=== PATIENT | female | born 1935 | race Caucasian/White ===

== ENCOUNTER → 2016-05-18 | Outpatient (CLI) | payer MEDICARE, OTHER ==
--- NOTE | 2016-05-18 14:26 | RAD ---
EXAM DESCRIPTION: XR PELVIS 1-2 VIEWS CLINICAL HISTORY: PAIN IN LEFT HIP COMPARISON: July 22, 2015 IMPRESSION: Single AP supine view of the pelvis shows no evidence of acute fracture, focal bone destruction, or joint dislocation. 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 Mild sclerotic changes at the pubic symphyseal region are noted. Electronically signed by: Ramone Nieves MD 05/18/2016 14:25
--- NOTE | 2016-05-19 08:01 | RAD ---
EXAM DESCRIPTION: XR KNEE 4 OR MORE VIEWS CLINICAL HISTORY: 81 y/o ,F, PAIN IN RIGHT KNEE COMPARISON: None. IMPRESSION: Degenerative change noted within the medial compartment of the right knee with joint space loss and osteophyte formation. The lateral compartment and patellofemoral joint appear preserved. Moderate-sized joint effusion. No evidence of fracture or osseous lesion of right knee. Electronically signed by: Chris Olmos MD 05/19/2016 07:59
--- NOTE | 2016-05-19 08:01 | RAD ---
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 This can be seen in setting of joint loosening. This is seen only on the lateral radiograph. Tibial prosthesis appears unremarkable. Moderate joint effusion. No evidence of fracture. Electronically signed by: Chris Olmos MD 05/19/2016 07:58
== END ==
LOC: RAD 08:45
PROVIDERS: ATTEND Orthopaedic Surgery
DX: M25.562 Pain in left knee (principal); M25.561 Pain in right knee; M25.462 Effusion, left knee; M25.461 Effusion, right knee; M12.862 Other specific arthropathies, not elsewhere classified, left knee; M12.861 Other specific arthropathies, not elsewhere classified, right knee; M16.0 Bilateral primary osteoarthritis of hip; Z96.652 Presence of left artificial knee joint

== ENCOUNTER → 2016-08-30 | Outpatient (CLI) | payer MEDICARE ==
--- NOTE | 2016-08-30 16:21 | MAM ---
History: Well woman exam. Date of exam: 08/30/2016 Services provided: Bilateral full field digital screening mammography. CAD, the images were reviewed with R2 computer aided detection. FINDINGS: Glandular tissue is scattered glandular contour with increased mammographic density. Comparison with 2013 study. Stable distribution. No dominant mass, architectural distortion or clustered calcifications. IMPRESSION: Benign exam. Recommendation: Routine annual exam. BIRAD CATEGORY: 2 BENIGN Electronically signed by: Venita Boyd MD 08/30/2016 4:15 PM CDT
== END | disposition home or self-care (01) ==
LOC: MAMMO 09:00
PROVIDERS: ATTEND Family Medicine
DX: Z12.31 Encounter for screening mammogram for malignant neoplasm of breast (principal)

== ENCOUNTER → 2016-10-03 | Outpatient (CLI) | payer MEDICARE, OTHER | END | disposition home or self-care (01) | LOC: GMAB 14:36 | PROVIDERS: ATTEND Family Medicine | DX: E03.9 Hypothyroidism, unspecified (principal) ==

== ENCOUNTER → 2016-10-05 | Outpatient (CLI) | payer MEDICARE, OTHER ==
--- NOTE | 2016-10-06 15:50 | CT ---
EXAM DESCRIPTION: CT ABDOMEN AND PELVIS WITHOUT AND WITH CONTRAST CLINICAL HISTORY: RUQ PAIN R10.11 COMPARISON: None Available. TECHNIQUE: CT of the abdomen and pelvis are performed prior to and during IV bolus administration of nonionic contrast. Oral contrast was not utilized. This exam was performed according to our departmental dose-optimization program, which includes automated exposure control, adjustment of the mA and/or kV according to patient size and/or use of iterative reconstruction technique. FINDINGS: The lung bases are essentially clear. Noncontrast imaging of the abdomen demonstrates no evidence of gallstones or renal calculi. Surgical suture row involving the right colon is noted in the right midabdomen. A modest sliding-type hiatal hernia is evident. Mild scoliosis of the lumbar spine with degenerative disc changes most prominently at L3-4 is evident. A small low-density lesion within the lateral aspect right lobe of the liver is present. Venous imaging demonstrates a fatty replaced liver with a small 1 cm bilobed cyst in the lateral aspect right lobe of the liver with normal-appearing gallbladder and ductal system. A small normal spleen is present. The pancreas is slightly undulating in its course but no cystic or solid mass or pancreatic duct obstruction is seen. The adrenal glands are normal in cortical enhancement of the kidneys is noted without solid or cystic renal mass. The retroperitoneum is unremarkable with normal caliber aorta and vena cava. No renal hydronephrosis is noted in the bladder is unremarkable. Prior midline abdominal surgery is noted without evidence of ventral hernia or inguinal hernia. Left colonic diverticulosis is present. Small normal to upper normal lymph nodes in the mesentery suggest mesenteric multiple mesenteric inflammation but a distinct mass or pathologic adenopathy is not apparent. The uterus is surgically absent without adnexal masses and no abdominal or pelvic free fluid is noted. IMPRESSION: 1. Fatty replaced liver with small benign bilobed 1 cm cyst lateral aspect of the right lobe of the liver. 2. Small sliding-type hiatal hernia. 3. Scattered small normal in upper normal mesenteric lymph nodes suggesting mild mesenteric inflammation but without conglomerate or enlarged lymphadenopathy 4. Left colonic diverticulosis. 5. A specific etiology for the patient's right upper quadrant pain is not apparent. Right colonic surgical anastomosis appears normal. Electronically signed by: Cb Houston MD 10/06/2016 3:51 PM CDT
== END | disposition home or self-care (01) ==
LOC: CT 08:49
PROVIDERS: ATTEND Family Medicine
DX: R10.11 Right upper quadrant pain (principal)

== ENCOUNTER → 2016-11-03 | Outpatient (CLI) | payer MEDICARE, OTHER | LOC: GMAB 17:48 | PROVIDERS: ATTEND Family Medicine | DX: E53.8 Deficiency of other specified B group vitamins (principal); D50.9 Iron deficiency anemia, unspecified ==

== ENCOUNTER → 2017-02-02 | Outpatient (CLI) | payer OTHER ==
--- NOTE | 2017-02-03 16:05 | US ---
EXAM DESCRIPTION: Abdomen,Complete CLINICAL HISTORY: RIGHT UPPER QUADRANT PAIN COMPARISON: CT abdomen and pelvis 10/05/2016. TECHNIQUE: Transabdominal scannin-dimensional and Doppler modes. FINDINGS: The gallbladder is normal in size, shape, and echogenicity, with no intraluminal stones or sludge. No fluid around the gallbladder. Wall thickness upper normal. 2.9 mm. Common bile duct caliber 4.6 mm which is within normal limits. No stones in the visualized portion of the duct. Not tender with transducer pressure. The liver demonstrates increased echogenicity; contour of the liver capsule is smooth where seen. Heterogeneous echoes. No fluid around the liver. Intrahepatic biliary ducts are non-dilated. Craniocaudal dimension in the mid-clavicular axis is 14.2 cm. Pancreas head, body, and tail normal in size and increased in echogenicity. Pancreatic duct is not dilated. Normal Doppler vascularity in the ozzie hepatis. Abdominal aorta diameter proximal 1.8 cm. Mid 1.7 cm. Distal 1.7 cm. IVC visualized; normal caliber. Spleen heterogeneous echogenicity; long axis measurement is 7.2 cm. No fluid in the spleno-renal fossa. Right kidney measures 11.4 x 4.8 x 4.2 cm , midrenal cortical thickness 9.6 mm. Heterogeneous Echogenicity with no hydronephrosis, no large calcifications, and no perinephric fluid. Contour smooth. Vascularity normal. Ureter not visualized. Left kidney measures 10.8 x 5.7 x 5.3 cm normal mid renal cortical thickness. Heterogeneous Echogenicity with no hydronephrosis, no large calcifications, and no perinephric fluid. Contour smooth. Vascularity normal. Ureter not visualized. IMPRESSION: 1. Normal size of the liver with echogenicity probably related to aging. Normal intrahepatic and extrahepatic ducts. Normal ultrasound of the gallbladder. No ascites. Normal vascularity. Normal ultrasound of the pancreas. 2. Echogenicity of the spleen probably related to aging. Normal size. No ascites. Normal caliber of the abdominal aorta. 3. Age-related changes in the bilateral kidneys with cortical thinning on the right. No hydronephrosis. Electronically signed by: Joshua Penn MD 02/03/2017 4:04 PM CDT
== END | disposition home or self-care (01) ==
LOC: US 12:15
PROVIDERS: ATTEND Family Medicine
DX: R10.11 Right upper quadrant pain (principal)

== ENCOUNTER → 2017-09-07 | Outpatient (CLI) | payer OTHER ==
--- NOTE | 2017-09-08 16:28 | MAM ---
EXAM DESCRIPTION: 3D Screening BILATERAL : Digital Mammography. CLINICAL HISTORY: 82 years Female SCREENING . No complaints. Prior bilateral biopsies and cyst aspiration of the right breast. No family history of breast cancer. Hysterectomy. Taking HRT 5 or more years ago. COMPARISON: 2-D digital screening bilateral study 09/07/2016. Report from prior examination also reviewed. TECHNIQUE: Bilateral CC and MLO projection full-field images, 3-D tomosynthesis digital mammographic technique. Also bilateral synthesized CC/ MLO full-field images. CAD not utilized. FINDINGS: The breast parenchymal density pattern is: Scattered areas of fibroglandular density. No skin thickening or nipple retraction VAD injection port partially superimposed over the pectoral muscle in the upper outer quadrant left breast on the MLO image. Bilateral vascular calcifications. Bilateral solitary microcalcifications. Multiple skin moles on the right breast. No focal, stellate mass or density, focal asymmetry , and no suspicious microcalcifications bilaterally. Stable mammograms compared to prior study, taking into account differences in mammographic technique IMPRESSION: BI-RADS CATEGORY: 2 - BENIGN FINDINGS. FOLLOW UP: Routine digital bilateral screening, one year interval from August 2017. Written communication explaining the IMPRESSION and follow-up, will be mailed to the patient and referring health care provider. According to the [employer], yearly mammograms are recommended starting at age 40 and continuing as long as a woman is in good health. Any breast change noted on a breast self-exam should be reported promptly to the patient's healthcare provider. Breast MRI is recommended for women with an approximately 20-25% or greater lifetime risk of breast cancer, including women with a strong family history of breast or ovarian cancer and women who have been treated for Hodgkin's disease. A negative mammographic report should not delay tissue diagnosis in patients with significant clinical history or physical findings. Extremely dense breast tissue limits the sensitivity of digital mammography. Electronically signed by: Joshua Penn MD 09/08/2017 4:26 PM CDT
== END ==
LOC: MAMMO 09:30
PROVIDERS: ATTEND Family Medicine
DX: Z12.31 Encounter for screening mammogram for malignant neoplasm of breast (principal)

== ENCOUNTER → 2017-10-10 | Outpatient (CLI) | payer MEDICARE | LOC: GMAB 10:58 | PROVIDERS: ATTEND Family Medicine | DX: E03.9 Hypothyroidism, unspecified (principal) ==

== ENCOUNTER → 2017-10-20 | Outpatient (CLI) | payer MEDICARE ==
--- NOTE | 2017-10-20 16:43 | CT ---
EXAM DESCRIPTION: Chest w/Contrast : Computed Tomography. CLINICAL HISTORY: MALIGNANT NEOPLASM OF LOWER LOBE COMPARISON: CT scan chest with IV contrast 11/03/2015. TECHNIQUE: Spiral-axial scans at 5.0 mm intervals through the lungs and thorax with IV contrast. 2.5 mm lung algorithm axial reconstructions. Coronal and sagittal 2.0 Mm reconstructions. No adverse reactions. Total Exam DLP: 407.2 mGy-cm. This exam was performed according to our departmental dose-optimization program which includes automated exposure control, adjustment of the mA and/or kV according to patient size and/or use of iterative reconstruction technique; to reduce radiation dose to as low as reasonably achievable (ALARA). FINDINGS: Bilateral intermittent focal pleural thickening. No pleural effusion or pneumothorax. Thickening of the major fissures. No abnormal pulmonary nodules masses or infiltrates. Inhomogeneous enhancement of the thyroid gland. No abnormal size lymph nodes mediastinum hilum or chest wall. No soft tissue masses. Atherosclerotic calcifications with coronary artery calcifications and stents. Low-density soft tissue nodule, approximately 1 cm in diameter, inferior lateral subcapsular, right lobe of liver. Stomach with possible hiatal hernia. Normal size and enhancement of the spleen and adrenal glands. No fluid in the subdiaphragmatic peritoneal space. Pancreas negative. Multiple levels of thoracic and upper lumbar spondylosis. Minimal arthrosis bilateral glenohumeral joints.. IMPRESSION: 1. No abnormal nodules masses or infiltrates in the lungs. No abnormal size lymph nodes or soft tissue masses in the thorax. 2 1 cm soft tissue density nodule inferior lateral subcapsular right lobe liver. Consider triple phase noncontrast/contrast CT scan of the liver for further evaluation. Electronically signed by: Joshua Penn MD 10/20/2017 4:42 PM CDT
== END ==
LOC: CT 09:20
PROVIDERS: ATTEND Family Medicine
DX: C34.30 Malignant neoplasm of lower lobe, unspecified bronchus or lung (principal)

== ENCOUNTER → 2018-09-11 | Outpatient (CLI) | payer MEDICARE ==
--- NOTE | 2018-09-13 17:21 | MAM ---
EXAM DESCRIPTION: 3D Screening BILATERAL : Digital Mammography. CLINICAL HISTORY: 83 years Female SCREENING . No complaints. No personal or family history of breast cancer. Childbirth. Hysterectomy 53 years ago. HRT. More than 5 years ago.. Lifetime risk of developing breast cancer (Tyrer-Cuzick model)(%): 1.7. COMPARISON: Bilateral screening digital breast tomosynthesis 09/07/2017. TECHNIQUE: Bilateral CC and MLO projection full-field images, digital tomosynthesis mammographic technique. Bilateral digital 2-D full-field MLO images. CAD not available for tomosynthesis or 2-D images. FINDINGS: The breast parenchymal density pattern is: Scattered areas of fibroglandular density. No skin thickening or nipple retraction. Bilateral solitary microcalcifications more on the right. events and promotions assistant partially obscuring the superior posterior left pectoral muscle. No new focal, stellate mass or density, focal asymmetry , and no suspicious microcalcifications bilaterally. Stable mammograms compared to prior study. IMPRESSION: Benign exam. BIRAD CATEGORY: 2 BENIGN FINDINGS. RECOMMENDATIONS: FOLLOW UP: Routine digital bilateral mammographic screening, one year interval from August 2018. Written communication explaining the IMPRESSION and follow-up, will be mailed to the patient and referring health care provider. The FINDINGS and the FOLLOW-UP plan were reviewed in person with the patient after the examination. According to the [employer], yearly mammograms are recommended starting at age 40 and continuing as long as a woman is in good health. Any breast change noted on a breast self-exam should be reported promptly to the patient's healthcare provider. Breast MRI is recommended for women with an approximately 20-25% or greater lifetime risk of breast cancer, including women with a strong family history of breast or ovarian cancer and women who have been treated for Hodgkin's disease. A negative mammographic report should not delay tissue diagnosis in patients with significant clinical history or physical findings. Extremely dense breast tissue limits the sensitivity of digital mammography. Electronically signed by: Joshua Penn MD 09/13/2018 5:19 PM CDT
== END ==
LOC: MAMMO 10:53
PROVIDERS: ATTEND Family Medicine
DX: Z12.31 Encounter for screening mammogram for malignant neoplasm of breast (principal)

== ENCOUNTER → 2018-11-12 | Outpatient (CLI) | payer MEDICARE ==
--- NOTE | 2018-11-13 09:11 | CT ---
EXAM DESCRIPTION: Chest w/o Contrast : Computed Tomography. CLINICAL HISTORY: 83 years Female Malignant neoplasm COMPARISON: CT scan of the lumbar spine on this visit. CT scan chest with contrast 10/20/2017. TECHNIQUE: Spiral-axial scans at 5 x 5 mm intervals through the lungs and thorax without IV contrast. 2.5 x 5 mm lung algorithm axial reconstructions. Coronal and sagittal 2.0 Mm reconstructions. No adverse reactions. Total Exam DLP: 279.45 mGy-cm. This exam was performed according to our departmental dose-optimization program which includes automated exposure control, adjustment of the mA and/or kV according to patient size and/or use of iterative reconstruction technique; to reduce radiation dose to as low as reasonably achievable (ALARA). Nodule measurements under 10 mm are given as mean value of 3 axes diameters. FINDINGS: Lungs and large airways: Linear parenchymal scarring in the superior segment of the right lower lobe. Stable since the prior study. Also lateral subpleural groundglass densities right lower lobe. Linear scarring in the base. No change since the prior study. 5 mm groundglass nodule medial left upper lobe stable. No New abnormal nodules or masses. No focal infiltrates.. Pleural spaces: Bilateral focal pleural thickening. No pleural effusion or pneumothorax. Mediastinum and Radha: Evaluation limited due to lack of IV contrast. Stable 8 mm short axis azygous node since the prior study. Other smaller nodes including subcarinal and AP window nodes are also stable. No large soft tissue masses. Great vessels and Heart: Evaluation limited due to lack of IV contrast. Pacing wires right atrium and right ventricle. Minimal atherosclerotic calcification in the aorta. Soft tissues of neck base, axillae, and chest wall: Evaluation limited due to lack of IV contrast.. Calcifications in the left breast. Scatter artifact from pacemaker left upper chest. Left subclavian access for VAD. Upper abdomen: No free fluid or free air in the peritoneal space. Normal density and size of the included organs. 9 mm nodule in the lateral upper right hepatic lobe with Hounsfield density 20-30 but stable in size since the prior study. Osseous structures: Several levels of spondylosis in the thoracic spine. Bilateral mild arthrosis sternoclavicular joints. No lytic or blastic lesions. IMPRESSION: 1. Probable scarring in the right right lower lobe, with subpleural groundglass densities. Groundglass nodule medial left upper lobe. No new abnormal nodules masses or focal infiltrates. Lymph nodes in the mediastinum unchanged since the prior study. Stable 9 mm nodule in the subcapsular right hepatic lobe. Consider yearly surveillance CT thorax. Electronically signed by: Joshua Penn MD 11/13/2018 9:08 AM CDT
--- NOTE | 2018-11-13 10:40 | CT ---
EXAM DESCRIPTION: Lumbar Spine: Computed Tomography. CLINICAL HISTORY: 83 years Female Sciatica COMPARISON: CT scan of the lungs on this visit. CT scan of the pelvis 09/14/2018. TECHNIQUE: Spiral, axial 2.5 x 2.5 mm scans through the lumbarspine without contrast. Coronal and sagittal 2.0 mm Reconstructions. No adverse reactions. Total Exam DLP: 819.4 mGy-cm. This exam was performed according to our departmental dose-optimization program which includes automated exposure control, adjustment of the mA and/or kV according to patient size and/or use of iterative reconstruction technique; to reduce radiation dose to as low as reasonably achievable (ALARA). FINDINGS: The posterior L5-S1 disc space is identified on axial series 4, image 72. The S1 segment is transitional with partial lumbarization of the right sacral ala, and rudimentary S1-S2 disc. Bilateral facet hypertrophic arthrosis and thickening of the flavum ligaments more right than left. Posterior midline 4 mm bulge of the disc with calcification. AP canal diameter 11 mm. Moderate to severe right foraminal narrowing and moderate left foraminal narrowing. L4-L5: Disc space preserved. Posterior broad-based disc bulge more to the left of midline 5 mm with calcification of the disc. Bilateral hypertrophic facet arthrosis and thickening of the ligaments right more than left. AP canal diameter 7 mm. Mild right foraminal stenosis. Moderate left foraminal narrowing. L3-L4: Endplate spurs, sclerosis, and severe disc space narrowing midline and left of midline. Disc spur complex encroaching on the left foramen. Posterior broad-based disc bulge with calcification and endplate spurs more to the left of midline. Effacement of the left subarticular recess. Bilateral hypertrophic facet arthrosis and ligament thickening. AP canal 7 mm to the left of midline. Left foraminal stenosis. Moderate to severe narrowing of the right foramen. L2-L3: Minimal disc space loss. Posterior broad-based disc bulge and small posterior endplate spurs. Anterior disc bulge with endplate spurs. Bilateral hypertrophic facet arthrosis and ligament thickening right more than left. AP canal diameter 9 mm. A large disc bulge into the left foramen with calcified margin. Moderate to severe left foraminal narrowing and moderate right foraminal narrowing. L1-L2: Anterior disc space loss with gas density in the disc. Anterior endplate ridging. Posterior disc osteophyte complex broad-based bulge. Bilateral hypertrophic facet arthrosis and ligament thickening. AP canal diameter 10 mm. Mild to moderate narrowing of the right foramen. Mild narrowing left foramen. T12-L1: Calcification of the posterior disc but no significant bulging. Minimal ligament thickening with calcification posteriorly. Canal and foramina are patent. AP canal diameter 12 mm. L1-L 4 dextroscoliosis. No compression type vertebral body fractures. No blastic or lytic lesions of the vertebral bodies or lateral and posterior elements. No paravertebral soft tissue mass. Atherosclerotic calcifications in the aorta. IMPRESSION: 1. Transitional S1 segment with partial sacralization right ala and rudimentary S1-S2 disc. Multiple levels of hypertrophic facet arthrosis and thickened flavum ligaments. Spondylosis at L4-L5, L3-L4, and L1-L2. No compression type vertebral body fractures. Multiple levels of canal narrowing or stenosis and foraminal narrowing or stenosis. 2. Multifactorial borderline mild central canal stenosis at L1-L2. 3. Multifactorial mild central canal stenosis L2-L3. Disc bulge into the left foramen with severe foraminal narrowing. Possible compromise left L2 nerve. 4. Multifactorial moderate left paracentral canal stenosis at L3-4. Effacement of the left subarticular recess with compromise left L4 nerve. Left foraminal stenosis and possible compromise left L3 nerve. 5. L4-5 left paracentral disc bulge or protrusion with left paracentral moderate canal stenosis and right foraminal stenosis and possible compromise of the associated nerve roots. Electronically signed by: Joshua Penn MD 11/13/2018 10:36 AM CDT
== END ==
LOC: CT 09:44
PROVIDERS: ATTEND Family Medicine
DX: C34.30 Malignant neoplasm of lower lobe, unspecified bronchus or lung (principal); K76.9 Liver disease, unspecified; M47.896 Other spondylosis, lumbar region; M54.31 Sciatica, right side; M48.062 Spinal stenosis, lumbar region with neurogenic claudication; M51.86 Other intervertebral disc disorders, lumbar region

== ENCOUNTER → 2019-03-04 | Outpatient (CLI) | payer MEDICARE | LOC: GMAE 10:53 | PROVIDERS: ATTEND Family Medicine | DX: E03.9 Hypothyroidism, unspecified (principal); I10 Essential (primary) hypertension; E78.2 Mixed hyperlipidemia ==

== ENCOUNTER 2019-05-16 17:46 | Emergency (ER) | payer MEDICARE ==
[2019-05-16] MEDS ORDERED: LABETALOL INJ 5 MG/ML VIAL IV ONE (18:24)
== END 2019-05-16 20:49 | disposition home or self-care (01) ==
LOC: ER 17:46
DX: I10 Essential (primary) hypertension (principal); Z95.0 Presence of cardiac pacemaker; Z85.850 Personal history of malignant neoplasm of thyroid; Z85.118 Personal history of other malignant neoplasm of bronchus and lung

== ENCOUNTER → 2019-10-15 | Outpatient (CLI) | payer MEDICARE ==
--- NOTE | 2019-10-15 12:01 | CT ---
EXAM DESCRIPTION: Chest w/o Contrast CLINICAL HISTORY: 84 years Female, MALIGNANT NEOPLASM OF LOWER LOBE BRONCHUS OR LUNG COMPARISON: 12 November 2018 TECHNIQUE: Transaxial images were obtained without intravenous contrast media. Sagittal and coronal reconstruction was performed. This exam was performed according to our departmental dose-optimization program, which includes automated exposure control, adjustment of the mA and/or kV according to patient size and/or use of iterative reconstruction technique. FINDINGS: A small hiatus hernia is observed. No pleural fluid is seen. No adrenal masses are detected. A pacemaker with atrial and ventricular leads is seen in place. No thyroid abnormality is seen. There is evidence of prior right thoracotomy. Metallic sutures observed about the right hilum. No pathologic axillary adenopathy is observed. No pathologic hilar or mediastinal adenopathy is observed. There is a pretracheal node which remains unchanged. Degenerative changes are seen in the thoracic spine. Lungs are free of acute infiltrate. No recurrence of the pulmonary neoplasm is seen. IMPRESSION: 1. A small hiatus hernia is observed. 2. The patient is post partial resection of the right lung without evidence of recurrence of the pulmonary neoplasm. Electronically signed by: Julian Goddard MD 10/15/2019 12:00 PM CDT
--- NOTE | 2019-10-16 17:13 | MAM ---
EXAM DESCRIPTION: 3D Screening BILATERAL : Digital Mammography. CLINICAL HISTORY: 84 years Female ANNUAL SCREENING . No complaints. No personal or family history of breast cancer. Menarche age 14. age 20. Hysterectomy age 29. HRT 5 or more years ago. Bilateral benign breast biopsies. Lifetime risk of developing breast cancer (Tyrer-Cuzick model)(%): 2.4. COMPARISON: Bilateral screening digital breast tomosynthesis August 2018 and August 2017.. No prior reports available. TECHNIQUE: Bilateral CC and MLO projection full-field images, digital tomosynthesis mammographic technique. Bilateral digital 2-D full-field MLO images. CAD available for 2-D images. FINDINGS: The breast parenchymal density pattern is: Scattered areas of fibroglandular density. No skin thickening or nipple retraction. paint line supervisor partially obscuring the upper left pectoral muscle on the MLO image. Also seen on the prior study. Bilateral solitary coarse calcifications and bilateral microcalcifications. Vascular calcifications. No new focal, stellate mass or density, focal asymmetry , and no suspicious microcalcifications . Stable mammograms compared to prior study. IMPRESSION: Benign exam. BIRAD CATEGORY: 2 BENIGN FINDINGS. RECOMMENDATIONS: FOLLOW UP: Routine digital bilateral mammographic screening, one year interval from September 2019. Written communication explaining the IMPRESSION and follow-up, will be mailed to the patient and referring health care provider. According to the [employer], yearly mammograms are recommended starting at age 40 and continuing as long as a woman is in good health. Any breast change noted on a breast self-exam should be reported promptly to the patient's healthcare provider. Breast MRI is recommended for women with an approximately 20-25% or greater lifetime risk of breast cancer, including women with a strong family history of breast or ovarian cancer and women who have been treated for Hodgkin's disease. A negative mammographic report should not delay tissue diagnosis in patients with significant clinical history or physical findings. Extremely dense breast tissue limits the sensitivity of digital mammography. Electronically signed by: Joshua Penn MD 10/16/2019 5:12 PM CDT
== END ==
LOC: CT 09:55
PROVIDERS: ATTEND Family Medicine
DX: Z12.31 Encounter for screening mammogram for malignant neoplasm of breast (principal); C34.30 Malignant neoplasm of lower lobe, unspecified bronchus or lung; K44.9 Diaphragmatic hernia without obstruction or gangrene; Z98.890 Other specified postprocedural states

== ENCOUNTER → 2019-10-21 | Outpatient (CLI) | payer MEDICARE ==
--- NOTE | 2019-10-21 13:13 | RAD ---
EXAM DESCRIPTION: Pelvis CLINICAL HISTORY: PAIN IN RIGHT HIP COMPARISON: None. TECHNIQUE: AP pelvis FINDINGS: Degenerative changes are seen in the pubic symphysis. Mild degenerative changes are observed in the lower lumbar spine. Phleboliths are observed in the pelvis. No mass is observed. No fracturing is detected. 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 No fracturing is detected. Electronically signed by: Julian Goddard MD 10/21/2019 1:11 PM CDT
--- NOTE | 2019-10-21 13:14 | RAD ---
EXAM DESCRIPTION: Hip,Right 2 Views CLINICAL HISTORY: PAIN IN RIGHT HIP COMPARISON: None. TECHNIQUE: 2 views right FINDINGS: Mild degenerative changes are seen in the pubic symphysis. Minimal femoral head osteophyte formation is observed in the right hip. No fracturing is detected. Mild degenerative changes are also observed in the sacroiliac joint. IMPRESSION: Degenerative changes are observed. No fracturing is detected. Electronically signed by: Julian Goddard MD 10/21/2019 1:12 PM CDT
--- NOTE | 2019-10-21 13:15 | RAD ---
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 No evidence of loosening or infection is detected. No fracturing is detected. IMPRESSION: Right total knee arthroplasty without evidence of complication. Electronically signed by: Julian Goddard MD 10/21/2019 1:13 PM CDT
== END ==
LOC: RAD 09:35
PROVIDERS: ATTEND Orthopaedic Surgery
DX: M47.896 Other spondylosis, lumbar region (principal); M16.11 Unilateral primary osteoarthritis, right hip; M94.9 Disorder of cartilage, unspecified; M25.561 Pain in right knee; Z96.651 Presence of right artificial knee joint

== ENCOUNTER → 2020-04-10 | Outpatient (CLI) | payer MEDICARE | LOC: GMAE 10:34 | PROVIDERS: ATTEND Family Medicine | DX: E03.9 Hypothyroidism, unspecified (principal); I10 Essential (primary) hypertension; E78.2 Mixed hyperlipidemia ==